=== PATIENT | female | born 1990 | race Two or more races ===

== ENCOUNTER 2016-10-13 13:51 | Emergency (ER) | payer MEDICAID ==
[2016-10-13] MEDS ORDERED: ACETAMINOPHEN 325 MG TABLET PO ONE (14:24)
--- NOTE | 2016-10-13 14:24 | ER Document Report ---
ED Medical Screen (RME) - General Stated Complaint: DIFFICULTY BREATHING, SWOLLEN HANDS/FEETS Time seen by provider: 14:22 Mode of Arrival: Ambulatory Information source: Patient Notes: 26-year-old female presents to ED for swelling to her hands feet and she states her whole body for the last 3 days. She states she's also been short of breath for the last 3 days . Denies using any new products eating any new food or taken any new lotions or potions. Patient states she is a smoker no alcohol or drug use. Last menstrual period started 10/11/2016 and she still on it. Denies taking any medication for her swelling or to make her feel better. States she had blurred vision yesterday I have greeted and performed a rapid initial assessment of this patient. A comprehensive ED assessment and evaluation of the patient, analysis of test results and completion of medical decision making process will be conducted by an additional ED providers. TRAVEL OUTSIDE OF THE [place] IN LAST 30 DAYS: No - Related Data Allergies/Adverse Reactions: No Known Allergies Allergy (Unverified 12/08/15 12:29) Past Medical History Past Surgical History: Reports: Hx Section Physical Exam - Vital signs Vitals: Temp Pulse Resp BP Pulse Ox 98.2 F 114 H 24 H 140/87 H 100 10/13/16 13:58 10/13/16 13:58 10/13/16 13:58 10/13/16 13:58 10/13/16 13:58 Course - Vital Signs Vital signs: Temp Pulse Resp BP Pulse Ox 98.2 F 114 H 24 H 140/87 H 100 10/13/16 13:58 10/13/16 13:58 10/13/16 13:58 10/13/16 13:58 10/13/16 13:58
[2016-10-13] MEDS ORDERED: ONDANSETRON 4 MG TAB.RAPDIS PO ONE (17:41)
[2016-10-13 18:30] LABS: ABSOLUTE BASOPHILS # (AUTO) 0.1 10^3/uL (0.0-0.2); ABSOLUTE LYMPHOCYTES (AUTO) 2.2 10^3/uL (0.5-4.7); ABSOLUTE MONOCYTES (AUTO) 0.8 10^3/uL (0.1-1.4); ABSOLUTE NEUT (AUTO) 9.2 10^3/uL (1.7-8.2); BASOPHILS % (AUTO) 0.4 % (0-2); EOSINOPHILS % (AUTO) 0.3 % (0-6); HEMATOCRIT 40.1 % (36.0-47.0); HEMOGLOBIN 13.1 g/dL (12.0-15.5); HGB HCT DIFFERENCE -0.8; LYMPHOCYTES % (AUTO) 17.7 % (13-45); MEAN CORPUSCULAR HEMOGLOBIN 30.3 pg (27.0-33.4); MEAN CORPUSCULAR HGB CONC 32.6 g/dL (32.0-36.0); MEAN CORPUSCULAR VOLUME 93 fl (80-97); MONOCYTES % (AUTO) 6.5 % (3-13); RED BLOOD COUNT 4.32 10^6/uL (3.72-5.28); RED CELL DISTRIBUTION WIDTH 14.2 % (11.5-14.0); SEGMENTED NEUTROPHILS % (AUTO) 75.1 % (42-78); WHITE BLOOD COUNT 12.2 10^3/uL (4.0-10.5)
[2016-10-13 18:31] LABS: APPEARANCE,URINE CLEAR; BILIRUBIN,URINE NEGATIVE (NEGATIVE); GLUCOSE, URINE NEGATIVE (NEGATIVE); KETONES,URINE NEGATIVE (NEGATIVE); LEUKOCYTE ESTERASE,URINE NEGATIVE (NEGATIVE); NITRITE,URINE NEGATIVE (NEGATIVE); PROTEIN,URINE NEGATIVE (NEGATIVE); URINE SPECIFIC GRAVITY 1.028; UROBILINOGEN,URINE NEGATIVE mg/dL (<2.0)
[2016-10-13 18:53] LABS: ALANINE AMINOTRANSFERASE 34 U/L (9-52); ALBUMIN 4.1 g/dL (3.5-5.0); ALKALINE PHOSPHATASE 81 U/L (38-126); ANION GAP 12 (5-19); ASPARTATE AMINO TRANSFERASE 23 U/L (14-36); BILIRUBIN,DIRECT 0.2 mg/dL (0.0-0.4); BILIRUBIN,TOTAL 0.6 mg/dL (0.2-1.3); BLOOD UREA NITROGEN 16 mg/dL (7-20); CALCIUM 9.1 mg/dL (8.4-10.2); CARBON DIOXIDE 24 mmol/L (22-30); CHLORIDE 105 mmol/L (98-107); CREATININE RESULT 0.56 mg/dL (0.52-1.25); GLUCOSE 83 mg/dL (75-110); LIPASE 50.2 U/L (23-300); POTASSIUM 4.5 mmol/L (3.6-5.0); SODIUM 140.7 mmol/L (137-145); TOTAL PROTEIN 7.2 g/dL (6.3-8.2)
[2016-10-13] MEDS ORDERED: ALPRAZOLAM 0.5 MG TABLET PO ONE (22:32)
--- NOTE | 2016-10-13 22:41 | ER Document Report ---
ED General - General Chief Complaint: Back Pain Stated Complaint: DIFFICULTY BREATHING, SWOLLEN HANDS/FEETS Mode of Arrival: Ambulatory Information source: Patient TRAVEL OUTSIDE OF THE [place] IN LAST 30 DAYS: No - HPI Notes: Patient presents with 3-4 day history of generalized myalgias, sensation of swelling to the hands and feet and face and reports that she's had intermittent episodes of dyspnea and occasional episodes of chest pain which occur more at rest. The patient reports no observed fever or chills. She denies any significant anti-inflammatory use but she is currently finishing off her menstrual cycle which she states is normal otherwise. No hormone therapy. No new exposures to any new lotions or foods that may have caused a allergic response. No itching skin rash. Patient does admit to some anxiety. Patient reports chest pain is nonexertional, sometimes worse when she is laying down to try to sleep. Not necessarily worse when she is laying on her back. - Related Data Allergies/Adverse Reactions: No Known Allergies Allergy (Verified 10/13/16 14:24) Past Medical History - General Information source: Patient - Social History Smoking Status: Current Every Day Smoker Chew tobacco use (# tins/day): No Frequency of alcohol use: None Drug Abuse: None Family History: Reviewed & Not Pertinent Patient has suicidal ideation: No Patient has homicidal ideation: No Renal/ Medical History: Denies: Hx Peritoneal Dialysis Past Surgical History: Reports: Hx Section Review of Systems - Review of Systems Notes: REVIEW OF SYSTEMS: CONSTITUTIONAL : Denies fever, chills, or sweats. Denies recent illness. EENT: Denies eye, ear, throat, or mouth pain or symptoms. Denies nasal or sinus congestion or discharge. Denies throat, tongue, or mouth swelling or difficulty swallowing. CARDIOVASCULAR: Denies palpitations or racing or irregular heart beat. Denies ankle edema. RESPIRATORY: Denies cough, cold, or chest congestion. Denies wheezing. GASTROINTESTINAL: Denies abdominal pain or distention. Denies blood in vomitus, stools, or per rectum. Denies black, tarry stools. Denies constipation. GENITOURINARY: Denies difficulty urinating, painful urination, burning, frequency, blood in urine, or discharge. FEMALE GENITOURINARY: Denies vaginal bleeding, heavy or abnormal periods, irregular periods. Denies vaginal discharge or odor. MUSCULOSKELETAL: Denies back or neck pain or stiffness. Denies joint pain or swelling. SKIN: Denies rash, lesions or sores. HEMATOLOGIC : Denies easy bruising or bleeding. LYMPHATIC: Denies swollen, enlarged glands. NEUROLOGICAL: Denies confusion or altered mental status. Denies passing out or loss of consciousness. Denies headache. Denies weakness or paralysis or loss of use of either side. Denies problems with gait or speech. Denies sensory loss, numbness, or tingling. Denies seizures. PSYCHIATRIC: Denies depression, suicidal ideation, or homicidal ideation. ALL OTHER SYSTEMS REVIEWED AND NEGATIVE. Dictation was performed using [employer] voice recognition software Physical Exam - Vital signs Vitals: Temp Pulse Resp BP Pulse Ox 98.2 F 114 H 24 H 140/87 H 100 10/13/16 13:58 10/13/16 13:58 10/13/16 13:58 10/13/16 13:58 10/13/16 13:58 - Notes Notes: PHYSICAL EXAMINATION: GENERAL: Well-appearing, well-nourished and in no acute distress. HEAD: Atraumatic, normocephalic. EYES: Pupils equal round and reactive to light, extraocular movements intact, conjunctiva are normal. ENT: Nares patent, oropharynx clear without exudates. Moist mucous membranes. NECK: Normal range of motion, supple without lymphadenopathy LUNGS: Breath sounds clear to auscultation bilaterally and equal. No wheezes rales or rhonchi. HEART: Regular rate and rhythm without murmurs ABDOMEN: Soft, nontender, nondistended abdomen. No guarding, no rebound. No masses appreciated. Female : deferred Musculoskeletal: Normal range of motion, no pitting . No cyanosis. Trace edema on the feet and hands. No palpable cord. Negative Homans. NEUROLOGICAL: Cranial nerves grossly intact. Normal speech, normal gait. Normal sensory, motor exams. PSYCH: Somewhat anxious. SKIN: Warm, Dry, normal turgor, no rashes or lesions noted. Course - Re-evaluation Re-evalutation: 10/14/16 00:30 Lab studies showed no significant electrolyte imbalance or trouble with the kidneys or anemia or significant proteinuria or UTI or . Given the minimal diffuse swelling, I would wonder about a secondary reaction to the patient being on her menstrual cycle, but she denies having any history of this in the past. She reports no anti-inflammatory use or significant salt intake. It still may be somewhat dietary. The patient does request a medication to help control the fluid. Her blood pressures are high normal, so I think she can take low dose hydrochlorothiazide and the doses given. She states she will follow-up with her regular practitioner. There is no clinical suggestion for congestive heart failure, cardiac ischemia, pulmonary embolus, significant inflammatory state her allergic response. 10/14/16 00:34 - Vital Signs Vital signs: Temp Pulse Resp BP Pulse Ox 98.6 F 94 20 144/94 H 98 10/13/16 17:37 10/13/16 23:22 10/13/16 23:22 10/13/16 23:22 10/13/16 23:22 - Laboratory Result Diagrams: 10/13/16 17:59 10/13/16 17:59 Laboratory results interpreted by me: 10/13/16 10/13/16 17:59 17:59 WBC 12.2 H RDW 14.2 H Absolute Neutrophils 9.2 H Urine Blood MODERATE H - EKG Interpretation by [facility] EKG shows normal: Sinus rhythm Additional EKG results interpreted by me: 10/13/16 23:51 EKG is interpreted by tx shows normal sinus rhythm heart rate of 91. There is no gross evidence for acute LA or ischemia identified. There is no old EKG available for comparison. Discharge - Discharge Clinical Impression: Hypertension Edema Qualifiers: Edema type: localized Qualified Code(s): R60.0 - Localized edema Chest pain Qualifiers: Chest pain type: unspecified Qualified Code(s): R07.9 - Chest pain, unspecified Clinical Impression: (Ruled Out): Hypertension Condition: Stable Disposition: HOME, SELF-CARE Additional Instructions: Hydrochlorothiazide Hydrochlorothiazide is a diuretic medication. Diuretics are often called "water pills." The medicine flushes excess salt and water from the body. Diuretics are used for fluid retention (such as heart failure, cirrhosis, or lung disease) and for blood pressure control. Often hydrochlorothiazide is combined with other medicines in the same pill. Most patients prefer to take the medicine in the morning. Hydrochlorothiazide makes extra urine, which can be a problem if you take the pill at night. Diuretics make you lose potassium. Sometimes a good diet with plenty of fruit is enough to replace it. Sometimes a potassium supplement is necessary. Or, hydrochlorothiazide may be combined with medicines that prevent potassium loss. We usually recommend a blood potassium test in a few weeks. Contact your doctor if you develop extreme fatigue, muscle weakness, lethargy, confusion, or palpitations.Edema, Peripheral You have swelling in your legs. This is called peripheral edema. It can be caused by "leaky capillaries," inflammation, disease of the leg veins, or excess salt and water in your body. Edema may be a sign of heart, kidney, or liver disease. A medical evaluation can determine if there is a serious underlying cause for your edema. Avoid prolonged standing. If you must sit for a long time, occasionally get up and walk around or elevate your legs. Support stockings can be helpful in limiting swelling. Often diuretic or water pills are used to remove excess salt and water from your body. Call the doctor or return if you develop increased swelling, pain, or redness, shortness of breath, chest pain, or any other significant change. Follow-up with regular practitioner next week. Take the hydrochlorothiazide in the mornings, is it will make you urinate more. Check and record your blood pressures regularly. Prescriptions: Hydrochlorothiazide 12.5 mg PO DAILY #60 capsule Forms: Elevated Blood Pressure, Return to Work
[2016-10-14] MEDS ORDERED: HYDROCHLOROTHIAZIDE 12.5 MG CAPSULE PO ONE (00:32)
[2016-10-14 01:27] VITALS: BP 123/74
--- NOTE | 2016-10-14 08:15 | EKG REPORT ---
SEVERITY:- NORMAL ECG - SINUS RHYTHM : Confirmed by: Wong Delatorre MD 14-Oct-2016 08:14:31
== END 2016-10-14 00:50 | disposition home or self-care (01) ==
LOC: ER 13:51
DX: R07.9 Chest pain, unspecified (principal); R60.0 Localized edema; I10 Essential (primary) hypertension; M54.9 Dorsalgia, unspecified; R06.02 Shortness of breath; M79.89 Other specified soft tissue disorders; M79.1 Myalgia; F17.200 Nicotine dependence, unspecified, uncomplicated
CPT/HCPCS: 93005; 99284; 36415; 83690; 84443; 84703; 85025; 80053; 81001; 71020; 93010; J3490 ×2; S0119